=== PATIENT | male | born 1985 | race Hispanic/Latino ===

== ENCOUNTER 2018-01-08 15:58 | Observation (INO) | payer BC ==
[2018-01-08 15:59] VITALS: BMI 25.7
[2018-01-08] MEDS ORDERED: Morphine 4 MG/ML VIAL ONE ×2 (16:10→16:42)
--- NOTE | 2018-01-08 16:36 | RAD ---
Date of service: 01/08/2018 PROCEDURE: Left Ankle Radiographs. HISTORY: Fell playing Rugby; r/o dislocation /or Fx. COMPARISON: None FINDINGS: BONES: There is an oblique fracture traversing the distal fibula with medial and what appears to represent some posterior dislocation of the left tibia with respect to the talus.. There is significant surrounding soft tissue swelling. Note that the possibility of a fracture of the posterior tibia (posterior malleolus) cannot be excluded JOINTS: Disruption of the ankle mortise. SOFT TISSUES: As above. OTHER FINDINGS: None. IMPRESSION: Fracture dislocation left ankle as detailed above with surrounding significant soft tissue swelling..
--- NOTE | 2018-01-08 16:48 | C.PDOC ---
History Of Present Illness 32 year old male presents to ED for evaluation of left ankle. Patient states he was playing rugby when he got stuck under 2 players and their full body weight landed on his ankle. Patient reports the pain was instant and heard three little snaps. Patient also reports throbbing pain with motion and rates it a 5 on the pain scale. Denies fever, chills, chest pain, cough, shortness of breath, nausea, vomiting, numbness, weakness, headache. PMD: Dr. Costa Time Seen by Provider: 01/08/18 16:24 Chief Complaint (Nursing): Lower Extremity Problem/Injury History Per: Patient History/Exam Limitations: no limitations Onset/Duration Of Symptoms: Hrs Current Symptoms Are (Timing): Still Present Past Medical History Reviewed: Historical Data, Nursing Documentation, Vital Signs Vital Signs: Last Vital Signs Temp 98.1 F 01/08/18 16:20 Pulse 50 L 01/08/18 16:20 Resp 18 01/08/18 16:20 BP 145/95 H 01/08/18 16:20 Pulse Ox 100 01/08/18 16:20 Surgical History: No Surg Hx Family History: States: No Known Family Hx - Social History Hx Alcohol Use: No Hx Substance Use: No Review Of Systems Except As Marked, All Systems Reviewed And Found Negative. Constitutional: Negative for: Fever, Chills Cardiovascular: Negative for: Chest Pain Respiratory: Negative for: Cough, Shortness of Breath Gastrointestinal: Negative for: Nausea, Vomiting Musculoskeletal: Positive for: Foot Pain (Left foot), Other (Left ankle ) Neurological: Negative for: Weakness, Numbness, Headache Physical Exam - Physical Exam Appears: Well, Non-toxic, Other (Appears to be in pain.) Skin: Warm, Dry Head: Atraumatic, Normacephalic Eye(s): bilateral: Normal Inspection, PERRL, EOMI Ear(s): Bilateral: Normal Nose: Normal Oral Mucosa: Moist Tongue: Normal Appearing Gingiva: Normal Appearing Throat: Normal Neck: Normal, Supple Chest: Symmetrical, No Deformity Cardiovascular: Rhythm Regular, No Murmur Respiratory: Normal Breath Sounds, No Rales, No Rhonchi, No Wheezing Gastrointestinal/Abdominal: Soft, No Tenderness, No Distention Extremity: Tenderness (Left ankle.), Other (Positive deformity to left ankle, pulses intact, good color to foot. ) Extremity: Left: Other (left ankle deformed and tender; pulses intact) Pulses: Left Dorsalis Pedis: Normal, Right Dorsalis Pedis: Normal Neurological/Psych: Oriented x3, Normal Speech, Normal Sensation ED Course And Treatment - Laboratory Results Result Diagrams: 01/08/18 16:57 01/08/18 16:57 O2 Sat by Pulse Oximetry: 100 (RA) Pulse Ox Interpretation: Normal - Other Rad X-ray left ankle X-Ray: Interpreted by Me, Viewed By Me Interpretation: FINDINGS: BONES: There is an oblique fracture traversing the distal fibula with medial and what appears to represent some posterior dislocation of the left tibia with respect to the talus.. There is significant surrounding soft tissue swelling. Note that the possibility of a fracture of th e posterior tibia (posterior malleolus) cannot be excluded. JOINTS: Disruption of the ankle mortise. SOFT TISSUES: As above. OTHER FINDINGS: None. IMPRESSION: Fracture dislocation left ankle as detailed above with surrounding significant soft tissue swelling.. Medical Decision Making Medical Decision Making: Initial Impression: Likely ankle dislocation +/- fracture Initial Plan: * Pain medication * X-rays * Call podiatry Progress note: 4:46 PM - Podiatry enroute to ED. Will need reduction and likely surgery. Procedure note: 6:05 PM - Procedural sedation occurred with fentanyl + versed with no complications--tolerated procedure well. Podiatry reduced ankle during procedural sedation; bones in good alignment. Pt to go to OR in about 30 minutes. Disposition Counseled Patient/Family Regarding: Studies Performed, Diagnosis - Disposition Disposition: HOSPITALIZED Disposition Time: 17:16 Condition: FAIR - POA Present On Arrival: Falls Or Trauma - Clinical Impression Clinical Impression: Ankle fracture, left, Dislocation of ankle, left, closed - Scribe Statement The provider has reviewed the documentation as recorded by the Ciro Riggs Provider Attestation: All medical record entries made by the Cruzibted were at my direction and personally dictated by me. I have reviewed the chart and agree that the record accurately reflects my personal performance of the history, physical exam, medical decision making, and the department course for this patient. I have also personally directed, reviewed, and agree with the discharge instructions and disposition. Decision To Admit - Pt Status Changed To: Hospital Disposition Of: Observation - . Bed Request Type: Regular Admitting Physician: America Shrestha Patient Diagnosis: Ankle fracture, left, Dislocation of ankle, left, closed Proc Sedation PRE-PROCEDURE - Pre-Anesthesia Chief Complaint: Lower Extremity Problem/Injury Past Medical History: Medications Reviewed, Allergies Reviewed, Record Review Previous Surgies: Reviewed Family History/Social History: Reviewed - Physical Exam/Review of Systems Vital Signs Reviewed: Yes Vital Signs and Pre-Procedure Checklist: T 98.8, P 54, 16, BP 145/95 Cardiovascular: Regular Rate and Rhythm. denies: Murmurs Respiratory/Chest: Clear to Auscultation. denies: Respiratory Distress, Accessory Muscle Use Neurological: GCS=15 Abdomen: denies: Tenderness Mental Status: Alert and Oriented X 3 Other pertinent exam: Pulses intact to left foot - Pre-Procedure Airway Assessment History of difficult intubation or surgical airway (i.e trach):: No Inability to extend neck:: No Mouth opening less than two finger breadth:: No Diagnosis of sleep apnea:: No Less than three finger breadth to hyoid bone:: No ASA Criteria: 1 - Healthy, normal. 2 - Mild systemic disease (No functional limitations, mildline obesity, DM withot complications, Hypertention). 3 - Severe systemic disease (Some functional limitation, stable angina, morbid obesity, controlled COPD/Asthma/CHF). 4 - Sever systemic disease constant threat to life (Unstable angina, active symptoms of COPD/Asthma, CHF/Hypertension. 5 - Moribund ASA Clarification: ASA I Mallampati (airway): Class I Proc Sedation INTRA-PROCEDURE - Medications Medications Given: Cefazolin Sodium / Sodium (Chloride) 50 mls @ 100 mls/hr IVPB Q8H NICHOLAS; Protocol Discontinued Medications Fentanyl (Fentanyl) 50 mcg IV STAT STA Stop: 01/08/18 17:02 Fentanyl (Fentanyl) 50 mcg IV STAT STA Stop: 01/08/18 17:39 Fentanyl (Fentanyl) 50 mcg IV STAT STA Stop: 01/08/18 17:46 Sodium Chloride (Sodium Chloride 0.9%) 500 mls @ 0 mls/hr IV .Q0M ONE Stop: 01/08/18 17:39 Lidocaine HCl (Lidocaine 2% 20ml Vial) 20 ml INFIL ONCE ONE Stop: 01/08/18 17:08 Midazolam HCl (Versed Inj) 2 mg IV STAT STA Stop: 01/08/18 17:02 Midazolam HCl (Versed Inj) 2 mg IV STAT STA Stop: 01/08/18 17:36 Morphine Sulfate (Morphine) 6 mg IVP STAT STA Stop: 01/08/18 16:11 Last Admin: 01/08/18 16:10 Dose: 6 mg MAR Pain Assessment Document 01/08/18 16:10 EC (Rec: 01/08/18 16:18 EC [id number]) Pain Reassessment Is this a pain reassessment? No Sleep Is patient sleeping during reassessment? No Presence of Pain Presence of Pain No Pain Scale Used Protocol: [facility] Pain Scale Used Numeric Location Left, Right or Bilateral Left Pain Location Body Site Ankle Description Description Constant Intensity of Pain at present 10 Acceptable Level of Pain 4 Pain Behavior Withdrawal from Touch Facial Grimacing IVP Administration Document 01/08/18 16:10 EC (Rec: 01/08/18 16:18 EC [id number]) Charges for Administration # of IVP Administrations 1 Morphine Sulfate (Morphine) 8 mg IVP STAT STA Stop: 01/08/18 16:34 Last Admin: 01/08/18 16:40 Dose: 8 mg MAR Pain Assessment Document 01/08/18 16:40 KXF (Rec: 01/08/18 16:56 [id number]) Pain Reassessment Is this a pain reassessment? Yes Sleep Is patient sleeping during reassessment? No Presence of Pain Presence of Pain Yes Pain Scale Used Protocol: [facility] Pain Scale Used Numeric Location Left, Right or Bilateral Left Pain Location Body Site Ankle Description Description Constant Pain Behavior Facial Grimacing IVP Administration Document 01/08/18 16:40 KXF (Rec: 01/08/18 16:56 [id number]) Charges for Administration # of IVP Administrations 1 Vital Signs: P 71, PO 96%, Resp Rate 11, BP 124/78 Proc Sedation POST-PROCEDURE - REACT Score REACT Score: 9 - Post Procedure Physician Note Post Procedure Note: Tolerated procedure well. Bones are in good alignment. - Discharge Checklist Written MD order for Discharge: No Vital signs assessed and are consistent with pre-procedure reading: Yes Voided (if applicable): No Minimal nausea, vomiting, and dizziness: Yes Ambulates to pre-procedural level: No Alert and oriented to pre-procedural level: Yes Responsible adult escort present: Yes DISCHARGE INSTRUCTIONS GIVEN:: N/A
[2018-01-08] MEDS ORDERED: Midazolam 2 MG/2 ML VIAL IV STA ×2 (17:01→17:35)
[2018-01-08] MEDS ORDERED: Naloxone 0.4 mg/ml Inj (Adult) ONE (17:02)
[2018-01-08] MEDS ORDERED: Midazolam 2 MG/2 ML VIAL ONE ×2 (17:02→19:36)
[2018-01-08] MEDS ORDERED: Lidocaine 1% Inj (20ml) INFIL ONE (17:05)
[2018-01-08 17:10] LABS: INR 1.2
[2018-01-08] MEDS ORDERED: Lidocaine 2% MPF (5 ml) Inj ONE ×2 (17:12→17:25)
[2018-01-08 17:13] LABS: BASO % 0.4 % (0.0-2.0); EOS % 0.3 % (0.0-4.0); HEMOGLOBIN 14.1 g/dL (12.0-18.0); LYMPH # 1.1 K/uL (1.0-4.3); LYMPH % 8.9 % (20.0-40.0); MEAN CELL VOLUME 78.7 fL (80.0-94.0); MEAN CORPUSCULAR HEMOGLOBIN 26.4 pg (27.0-31.0); MEAN CORPUSCULAR HGB CONC 33.5 g/dL (33.0-37.0); MEAN PLATELET VOLUME 8.2 fL (7.2-11.7); MONO # 0.5 K/uL (0.0-0.8); MONO % 4.3 % (0.0-10.0); NEUT # 10.5 K/uL (1.8-7.0); NEUT % 86.1 % (50.0-75.0); NRBC % 0.1 % (0.0-2.0); PLATELET COUNT 251 K/uL (130-400); RBC 5.35 Mil/uL (4.40-5.90); RED CELL DISTRIBUTION WIDTH 13.2 % (11.5-14.5); WHITE BLOOD COUNT 12.2 K/uL (4.8-10.8)
[2018-01-08 17:14] LABS: ALB/GLOB RATIO 1.6 (1.0-2.1); ALBUMIN 4.7 g/dL (3.5-5.0); ALT/SGPT 40 U/L (21-72); AST/SGOT 43 U/L (17-59); BLOOD UREA NITROGEN 15 mg/dL (9-20); CALCIUM 9.7 mg/dl (8.6-10.4); GFR NON-AFRICAN AMERICAN > 60
[2018-01-08] MEDS ORDERED: Sodium Chloride 0.9% 500 ML IV ONE (17:38)
[2018-01-08 17:49] LABS: BANDS 2 % (0-2); LYMPHOCYTE 12 % (20-40); MONOCYTE 2 % (0-10); NEUTROPHIL 84 % (50-75); PLATELET ESTIMATE NORMAL (NORMAL); TOTAL CELLS COUNTED 100
[2018-01-08 17:50] LABS: ANISOCYTOSIS SLIGHT; HYPOCHROMIC SLIGHT; LARGE PLATELETS PRESENT; OVALOCYTES SLIGHT; POIKILOCYTOSIS SLIGHT
[2018-01-08] MEDS ORDERED: Sodium Chloride 0.9% 1,000 ML IV SCH ×2 (18:00→18:55)
--- NOTE | 2018-01-08 18:05 | CP.PCM.CON ---
History of Present Illness - History of Present Illness History of Present Illness: 32 yo male with no significant pmhx seen and evaluated in the ED for left ankle fracture and dislocation. Patient is AAOx3 and NAD. States that he was playing rugby and got his foot caught on the turf and felt his ankle break. States that he has not ambulated on the ankle since the incident which was a few hours ago. States that he has not eaten since 10:30AM. States that he was in severe pain but has since been given pain medication which has helped. Denies N/V/F/C/CP/SOB and has no other pedal complaints at this time. PMHx Denies PSHx Denies All NKDA Past Patient History - Infectious Disease Hx of Infectious Diseases: None - Past Social History Smoking Status: Never Smoked - PSYCHIATRIC Hx Substance Use: No - SURGICAL HISTORY Hx Surgeries: No - ANESTHESIA Hx Anesthesia: No Meds Allergies/Adverse Reactions: Allergies Allergy/AdvReac Type Severity Reaction Status Date / Time No Known Allergies Allergy Verified 01/08/18 16:22 - Medications Medications: Current Medications Cefazolin Sodium (Ancef) 1 gm in 50 mls @ 100 mls/hr IVPB Q8H NICHOLAS; Protocol Sodium Chloride (Sodium Chloride 0.9%) 1,000 mls @ 100 mls/hr IV .Q10H NICHOLAS Ketorolac Tromethamine (Toradol) 15 mg IVP Q6 PRN PRN Reason: Pain, moderate (4-7) Pantoprazole Sodium (Protonix Inj) 40 mg IVP DAILY NICHOLAS Physical Exam - Constitutional Appears: Well, Non-toxic, No Acute Distress - Head Exam Head Exam: ATRAUMATIC, NORMOCEPHALIC - Extremities Exam Additional comments: Vasc: DP and PT palpable 2/4 b/l; cap refill <3 seconds to all digits; temp gradient warm to warm on the left from proximal to distal, wnl to right; mild edema present at the left ankle M>L Derm: Left focused - no open lesions present, no streaking or cellulitis present, no clinical signs of infection; ecchymosis present on the medial aspect of hte ankle with skin tenting present due to medial displacement of the ankle; mild erythema present at the medial ankle as well Ortho: closed reduction performed - ankle reduced into proper alignment, cast applied to left lower extremity Neuro: gross and protective sensation intact b/l - Neurological Exam Neurological exam: Alert, Oriented x3 - Psychiatric Exam Psychiatric exam: Normal Affect, Normal Mood Results - Vital Signs Recent Vital Signs: Last Vital Signs Temp 98.6 F 01/08/18 17:31 Pulse 74 01/08/18 17:40 Resp 16 01/08/18 17:40 BP 132/79 01/08/18 17:40 Pulse Ox 100 01/08/18 18:01 - Labs Result Diagrams: 01/08/18 16:57 01/08/18 16:57 Labs: Laboratory Results - last 24 hr 01/08/18 01/08/18 01/08/18 16:57 16:57 16:57 WBC 12.2 H RBC 5.35 Hgb 14.1 Hct 42.1 MCV 78.7 L MCH 26.4 L MCHC 33.5 RDW 13.2 Plt Count 251 MPV 8.2 Neut % (Auto) 86.1 H Lymph % (Auto) 8.9 L Hood % (Auto) 4.3 Eos % (Auto) 0.3 Baso % (Auto) 0.4 Neut # (Auto) 10.5 H Lymph # (Auto) 1.1 Hood # (Auto) 0.5 Eos # (Auto) 0.0 Baso # (Auto) 0.0 Neutrophils % (Manual) 84 H Band Neutrophils % 2 Lymphocytes % (Manual) 12 L Monocytes % (Manual) 2 Platelet Estimate Normal Large Platelets Present Hypochromasia (manual) Slight Poikilocytosis (manual Slight Anisocytosis (manual) Slight Ovalocytes Slight PT 13.0 H INR 1.2 Sodium 141 Potassium 4.3 Chloride 102 Carbon Dioxide 27 Anion Gap 16 BUN 15 Creatinine 1.1 Est GFR ( Amer) > 60 Est GFR (Non-Af Amer) > 60 Random Glucose 104 Calcium 9.7 Total Bilirubin 1.1 AST 43 ALT 40 Alkaline Phosphatase 110 Total Protein 7.6 Albumin 4.7 Globulin 2.9 Albumin/Globulin Ratio 1.6 Assessment & Plan - Assessment and Plan (Free Text) Assessment: 32 yo male with no significant pmhx seen and evaluated in the ED for left ankle fracture and dislocation Plan: Patient seen and evaluated with Dr. Lai Charts and labs reviewed - mild elevated WBC normal with trauma; afebrile X-rays taken and reviewed - left distal fibular fracture with syndesmotic ruptu re, medial dislocation of ankle on rearfoot Consent signed for closed reduction of ankle in ED - risks and benefits explained, patient signed consent Closed reduction performed with injection of 20cc of 2% lidocaine plain; post reduction films taken, adequate reduction achieved Cast applied to left lower extremity Patient will be taken for ORIF of left ankle tonight - OR, ED, podiatry aware - consent for surgery, patient signed Ancef 1g ordered for periop prophylaxis, PT eval ordered, consult appreciated Patient will stay overnight for observation, podiatry will follow when patient on floor Thank you for the consult - Date & Time Date: 01/08/18 Time: 18:16
[2018-01-08] MEDS ORDERED: ceFAZolin 1 gm in NS 1 GM/100 ML BAG IVPB ONE (18:14)
--- NOTE | 2018-01-08 18:52 | CP.PCM.HP ---
History of Present Illness - History of Present Illness History of Present Illness: Medicine History and Physical for Hospitalist Service 32M with no remarkable PMhx presents to ED s/p trauma to L ankle while playing rugby 3 hrs prior. Pt states that he was playing rugby at [employer] on a turf field when he slid down to make a play, and 2 players fell on him, causing him to land on his L ankle the wrong way, felt pop and pain as a result. Denies hx of trauma/fractures to same area. Pts at bedside reports hx dislocating L middle finger 3 weeks ago, which pt was able to reduce on own without concerns. Denies headache, dizziness, trauma to head/LOC, chest pain, sob, n/v/d/c, abd pain, urinary complaints, or other symptoms. PMHx: denies PSurghx: denies Allergies: NKDA Home meds: none Fam Hx: denies Soc Hx: denies smoking, EtOH, or illicit drug use PMD: none Present on Admission - Present on Admission Any Indicators Present on Admission: No Past Patient History - Infectious Disease Hx of Infectious Diseases: None - Past Social History Smoking Status: Never Smoked - PSYCHIATRIC Hx Substance Use: No - SURGICAL HISTORY Hx Surgeries: No - ANESTHESIA Hx Anesthesia: No Meds Allergies/Adverse Reactions: Allergies Allergy/AdvReac Type Severity Reaction Status Date / Time No Known Allergies Allergy Verified 01/08/18 16:22 Physical Exam - Constitutional Appears: Non-toxic, In Acute Distress - Head Exam Head Exam: ATRAUMATIC, NORMOCEPHALIC - Eye Exam Eye Exam: EOMI, Normal appearance, PERRL - ENT Exam ENT Exam: Mucous Membranes Moist - Respiratory Exam Respiratory Exam: Clear to Auscultation Bilateral, NORMAL BREATHING PATTERN. absent: Rales, Rhonchi, Wheezes - Cardiovascular Exam Cardiovascular Exam: REGULAR RHYTHM, +S1, +S2. absent: Gallop, Rubs, Systolic Murmur - GI/Abdominal Exam GI & Abdominal Exam: Normal Bowel Sounds, Soft. absent: Distended, Firm, Guarding, Organomegaly, Rebound, Rigid, Tenderness - Extremities Exam Extremities exam: Positive for: joint swelling, tenderness, pedal pulses present Additional comments: Unable to assess L ankle 2/2 pain due to fracture, pt unable to move L leg on exam without inducing pain - Neurological Exam Neurological exam: Alert, CN II-XII Intact, Oriented x3, Reflexes Normal - Psychiatric Exam Psychiatric exam: Normal Affect, Normal Mood - Skin Skin Exam: Dry, Intact, Normal Color, Warm Results - Vital Signs Recent Vital Signs: Last Vital Signs Temp 98.6 F 01/08/18 17:31 Pulse 76 01/08/18 18:18 Resp 15 01/08/18 18:18 BP 123/69 01/08/18 18:18 Pulse Ox 100 01/08/18 18:21 - Labs Result Diagrams: 01/08/18 16:57 01/08/18 16:57 Labs: Laboratory Results - last 24 hr 01/08/18 01/08/18 01/08/18 16:57 16:57 16:57 WBC 12.2 H RBC 5.35 Hgb 14.1 Hct 42.1 MCV 78.7 L MCH 26.4 L MCHC 33.5 RDW 13.2 Plt Count 251 MPV 8.2 Neut % (Auto) 86.1 H Lymph % (Auto) 8.9 L [place] % (Auto) 4.3 Eos % (Auto) 0.3 Baso % (Auto) 0.4 Neut # (Auto) 10.5 H Lymph # (Auto) 1.1 [place] # (Auto) 0.5 Eos # (Auto) 0.0 Baso # (Auto) 0.0 Neutrophils % (Manual) 84 H Band Neutrophils % 2 Lymphocytes % (Manual) 12 L Monocytes % (Manual) 2 Platelet Estimate Normal Large Platelets Present Hypochromasia (manual) Slight Poikilocytosis (manual Slight Anisocytosis (manual) Slight Ovalocytes Slight PT 13.0 H INR 1.2 Sodium 141 Potassium 4.3 Chloride 102 Carbon Dioxide 27 Anion Gap 16 BUN 15 Creatinine 1.1 Est GFR ( Amer) > 60 Est GFR (Non-Af Amer) > 60 Random Glucose 104 Calcium 9.7 Total Bilirubin 1.1 AST 43 ALT 40 Alkaline Phosphatase 110 Total Protein 7.6 Albumin 4.7 Globulin 2.9 Albumin/Globulin Ratio 1.6 Blood Type Antibody Screen 01/08/18 17:12 WBC RBC Hgb Hct MCV MCH MCHC RDW Plt Count MPV Neut % (Auto) Lymph % (Auto) [place] % (Auto) Eos % (Auto) Baso % (Auto) Neut # (Auto) Lymph # (Auto) [place] # (Auto) Eos # (Auto) Baso # (Auto) Neutrophils % (Manual) Band Neutrophils % Lymphocytes % (Manual) Monocytes % (Manual) Platelet Estimate Large Platelets Hypochromasia (manual) Poikilocytosis (manual Anisocytosis (manual) Ovalocytes PT INR Sodium Potassium Chloride Carbon Dioxide Anion Gap BUN Creatinine Est GFR ( Amer) Est GFR (Non-Af Amer) Random Glucose Calcium Total Bilirubin AST ALT Alkaline Phosphatase Total Protein Albumin Globulin Albumin/Globulin Ratio Blood Type O POSITIVE Antibody Screen Negative Assessment & Plan - Assessment and Plan (Free Text) Assessment: 32M with no remarkable PMhx presents to ED s/p trauma to L ankle while playing rugby 3 hrs prior. Found to have L ankle fracture and dislocation. Pt to go to OR tonight for ORIF with Dr. Lai. Plan: L ankle and fibular fx fracture Mild leukocytosis on admission labs, likely 2/2 to trauma, pt afebrile XR L ankle and tib/fibula performed L distal fibular fx with syndesmotic rupture, medial dislocation of ankle on rear forefoot S/p closed reduction performed in ED with lidocaine injection, post reduction films demonstrates adequate reduction Plan for ORIF of L ankle tonight with Dr. Lai (Podiatry consulted) Ancef 1 g ordered for sriram-op ppx PT eval ordered, f/u recs Toradol 15 mg IVP q 6h prn DVT ppx: SCDs GI ppx: Protonix daily Dispo: D/c planning after procedure pending podiatry clearance after pt has procedure; will f/u am post-op labs tomorrow Pt seen, examined with, and plan discussed with Dr. Shrestha, attending. Ousmane Estrada DO PGY-1, Publishing Agent pager #[phone]
[2018-01-08] MEDS: ceFAZolin 1 gm FROZEN Premix 1 GM/50 ML ML IVPB SCH (19:28)
[2018-01-08] MEDS ORDERED: Propofol 10 mg/ml Inj (20 ML) ONE (19:36)
[2018-01-08] MEDS ORDERED: LIDOCAINE 2% PF (2ML) ONE (20:04)
[2018-01-08] MEDS ORDERED: ceFAZolin IV 1 gm in Dextrose 2 GM/100 ML BAG IVPB ONE (20:06)
[2018-01-08] MEDS: Lidocaine 2% Inj (20ml) INFIL ONE ×2 (20:15→20:30)
[2018-01-08] MEDS: Bupivacaine 0.25% 20 ML INJ IJ ONE ×3 (20:15→22:09)
[2018-01-08] MEDS ORDERED: Lidocaine Hydrochloride 5 ML INJ ONE (21:49)
[2018-01-08] MEDS ORDERED: Bupivacaine 0.25% 20 ML INJ IJ ONE (21:54)
[2018-01-08] MEDS ORDERED: HYDROmorphone 1 mg/ml ISec IVP PRN (22:15)
[2018-01-08] MEDS ORDERED: Oxycodone/Acetaminophen 5/325 mg Tab PO PRN ×2 (22:15)
[2018-01-08] MEDS ORDERED: HYDROmorphone 0.5 mg/0.5 ml ISec IVP PRN (22:17)
--- NOTE | 2018-01-08 22:24 | PCM.SURG1 ---
Surgeon's Initial Post Op Note - Surgeon's Notes Surgeon: Dr. Lai DPM Acid Condenser: Dr. Serrano PGY3, Dr. Royal PGY3, Dr. Melissa PGY1 Type of Anesthesia: General LMA, Local Anesthesia Administered By: Justo Pre-Operative Diagnosis: Left fibular fracture and disruption of syndesmosis Operative Findings: see dictation Post-Operative Diagnosis: same Operation Performed: Left ankle ORIF with tightrope Specimen/Specimens Removed: none Estimated Blood Loss: EBL {In ML}: 30 Blood Products Given: N/A Drains Used: No Drains Post-Op Condition: Good Date of Surgery/Procedure: 01/08/18 Time of Surgery/Procedure: 22:23
[2018-01-09 00:34] VITALS: RESP 20
[2018-01-09] MEDS ORDERED: ceFAZolin 1 gm FROZEN Premix 1 GM/50 ML ML IVPB ONE ×2 (04:00→08:00)
[2018-01-09 04:16] VITALS: O2SAT 98
[2018-01-09 09:17] LABS: BASO % 0.3 % (0.0-2.0); EOS # 0.1 K/uL (0.0-0.7); EOS % 0.9 % (0.0-4.0); HEMOGLOBIN 12.5 g/dL (12.0-18.0); LYMPH # 1.9 K/uL (1.0-4.3); LYMPH % 25.9 % (20.0-40.0); MEAN CELL VOLUME 79.1 fL (80.0-94.0); MEAN CORPUSCULAR HGB CONC 34.1 g/dL (33.0-37.0); MEAN PLATELET VOLUME 8.5 fL (7.2-11.7); MONO # 0.5 K/uL (0.0-0.8); MONO % 6.8 % (0.0-10.0); NEUT # 4.8 K/uL (1.8-7.0); NEUT % 66.1 % (50.0-75.0); RBC 4.65 Mil/uL (4.40-5.90); RED CELL DISTRIBUTION WIDTH 13.6 % (11.5-14.5); WHITE BLOOD COUNT 7.3 K/uL (4.8-10.8)
[2018-01-09 09:35] LABS: ALB/GLOB RATIO 1.5 (1.0-2.1); ALBUMIN 3.7 g/dL (3.5-5.0); ALT/SGPT 28 U/L (21-72); AST/SGOT 29 U/L (17-59); BLOOD UREA NITROGEN 12 mg/dL (9-20); CALCIUM 8.9 mg/dl (8.6-10.4); GFR NON-AFRICAN AMERICAN > 60
[2018-01-09] MEDS: ceFAZolin 1 gm FROZEN Premix 1 GM/50 ML ML IVPB SCH (09:52)
[2018-01-09] MEDS ORDERED: oxyCODONE 5 mg Immediate Release Tab PO ONE (10:26)
--- NOTE | 2018-01-09 12:15 | RAD ---
Date of service: 01/08/2018 PROCEDURE: Intraoperative Fluoroscopy. HISTORY: LEFT ANKLE FX FINDINGS: Fluoroscopic assistance was provided for open reduction internal fixation. Please refer to the operative report from [facility]. Total fluoroscopic time (continuous mode) utilized during the procedure 102.1 (seconds). Total exam DLP: 3.44 (mGy).
--- NOTE | 2018-01-09 12:26 | RAD ---
Date of service: 01/08/2018 PROCEDURE: Left Ankle Radiographs. HISTORY: Portable Post Reduction Ankle Xrays COMPARISON: Correlation made with prior ankle radiographs 01/08/2018 at 16: 13 hr FINDINGS: BONES: Comminuted fracture of the distal fibula with the suspected fracture the posterior malleolus. Soft tissue swelling. JOINTS: Apparent closed reduction previously noted dislocated tibia with respect to the talus. Note the possibility of a fracture of the talus cannot be excluded. Tele SOFT TISSUES: Surrounding soft tissue swelling. OTHER FINDINGS: None. IMPRESSION: Comminuted fracture distal fibula with suspected fracture posterior malleolus. Note that the possibility of a fracture of the distal talus not excluded. Apparent closed reduction previously noted dislocated tibia with respect to the talus.
--- NOTE | 2018-01-09 12:38 | CP.PCM.PN ---
Subjective - Date & Time of Evaluation Date of Evaluation: 01/09/18 Time of Evaluation: 12:25 - Subjective Subjective: Podiatry progress note for Dr. Lai, 32 yo male s/p 1 day left ankle ORIF seen at bedside restin comfortably alongside his . Patient is in NAD and AAOx3. Patient admits to pain being controlled with the pain medication. Patient states he has an appetite and is able to eat. Admits to elevating left lower extremity. Patient states he would like to go home today if possible. Denies calf pain/f/n/v/sob/decreased appetite. Objective - Vital Signs/Intake and Output Vital Signs (last 24 hours): Temp Pulse Resp BP Pulse Ox 98.0 F 61 20 103/61 98 01/09/18 07:00 01/09/18 07:00 01/09/18 07:00 01/09/18 07:00 01/09/18 11:05 Intake and Output: 01/09/18 01/09/18 06:59 18:59 Intake Total 1120 Output Total 700 Balance 420 - Medications Medications: Current Medications Acetaminophen (Tylenol 325mg Tab) 650 mg PO Q6 PRN PRN Reason: Pain, Mild (1-3) Hydromorphone HCl (Dilaudid) 1 mg IVP Q4H PRN PRN Reason: Pain, severe (8-10) Influenza Virus Vaccine (Fluzone Quad [id number]) 60 mcg IM .ONCE ONE Stop: 01/11/18 14:01 Ketorolac Tromethamine (Toradol) 15 mg IVP Q6 PRN PRN Reason: Pain, moderate (4-7) Last Admin: 01/09/18 04:51 Dose: 15 mg Oxycodone/Acetaminophen (Percocet 5/325 Mg Tab) 1 tab PO Q4H PRN PRN Reason: Pain, moderate (4-7) Stop: 01/11/18 22:16 Last Admin: 01/09/18 04:10 Dose: 1 tab Oxycodone/Acetaminophen (Percocet 5/325 Mg Tab) 2 tab PO Q4H PRN PRN Reason: Pain, severe (8-10) Stop: 01/11/18 22:16 Pantoprazole Sodium (Protonix Inj) 40 mg IVP DAILY NICHOLAS - Labs Labs: 01/09/18 09:05 01/09/18 09:24 PT 13.0 SECONDS (9.7-12.2) H 01/08/18 16:57 INR 1.2 01/08/18 16:57 - Constitutional Appears: Well, Non-toxic, No Acute Distress - Head Exam Head Exam: ATRAUMATIC, NORMOCEPHALIC - Extremities Exam Additional comments: Left lower extremity exam: Dressing clean and intact, sanguinous strikethrough noted. Patient able to wiggle his toes, CFT <3 secs x5. - Neurological Exam Neurological Exam: Alert, Awake, Oriented x3 - Psychiatric Exam Psychiatric exam: Normal Affect Assessment and Plan - Assessment and Plan (Free Text) Assessment: 32 yo male with no significant pmhx s/p 1 day left ankle ORIF Plan: Patient seen and evaluated along with the attending, Dr Lai chart, labs and vitals reviewed, afebrile, absent leukocytosis. Dressing with posterior splint kept intact; new PAULINE wrap applied. Patient crutch trained by the physical therapist Patient to d/c with PO pain medication, keflex, and xarelto by the medicine team Patient to follow up with Dr Lai in her [place] office this Wednesday. Patient to keep dressing d/c/i and stay [facility] to [facility] Podiatry will follow the patient while in house. Patient stable for discharge from podiatry point of view.
--- NOTE | 2018-01-09 13:36 | RAD ---
Date of service: 01/08/2018 PROCEDURE: Radiographs of the left tibia and fibula. HISTORY: Left leg trauma COMPARISON: Comparison made with radiographs left ankle earlier same day TECHNIQUE: Frontal and lateral views obtained. FINDINGS: There has been interval placement of a fiberglass cast or splint which reduces fine soft tissue and bone detail. BONES: Status post closed reduction previously noted comminuted fracture distal fibula and dislocation of the distal tibia with respect to the talus. Questionable fracture of the posterior malleolus. Note that the possibility of a fracture of the talus cannot be excluded. Surrounding soft tissue swelling. JOINT SPACES: As above OTHER FINDINGS: None. IMPRESSION: The slightly limited study as described. Status post closed reduction previously noted comminuted fracture distal fibula and dislocation of the distal tibia with respect to the talus. Questionable fracture of the posterior malleolus. Note that the possibility of a fracture of the talus cannot be excluded. Surrounding soft tissue swelling.
--- NOTE | 2018-01-09 13:38 | RAD ---
Date of service: 1 with a done 01/08/2018 PROCEDURE: Left Ankle Radiographs. HISTORY: s/p left ankle ORIF COMPARISON: None FINDINGS: BONES: ORIF previously noted comminuted fractured distal fibula. There has been placement of a sideplate which is attached to the distal fibula by multiple threaded screws. Additionally, there also appears to have been tight rope syndesmotic repair. Surrounding soft tissue swelling. JOINTS: As above SOFT TISSUES: As above OTHER FINDINGS: None. IMPRESSION: ORIF previously noted comminuted fractured distal fibula. There has been placement of a sideplate which is attached to the distal fibula by multiple threaded screws. Additionally, there also appears to have been tight rope syndesmotic repair.
[2018-01-09 15:58] VITALS: BP 118/76; PULSE 59; TEMP 99.2
--- NOTE | 2018-01-09 20:09 | CP.PCM.DIS ---
<Ousmane Estrada - Last Filed: 01/09/18 19:59> Provider - Provider Date of Admission: 01/08/18 17:19 Attending physician: America Shrestha MD Primary care physician: Dr. Lozada Consults: Podiatry - Dr. Lai Time Spent in preparation of Discharge (in minutes): 45 Diagnosis - Discharge Diagnosis (1) Left fibular fracture Status: Acute (2) Ankle fracture, left Status: Acute (3) Dislocation of ankle, left, closed Status: Acute Hospital Course - Lab Results Lab Results: Most Recent Lab Values WBC 7.3 K/uL (4.8-10.8) 01/09/18 09:05 RBC 4.65 Mil/uL (4.40-5.90) 01/09/18 09:05 Hgb 12.5 g/dL (12.0-18.0) 01/09/18 09:05 Hct 36.8 % (35.0-51.0) 01/09/18 09:05 MCV 79.1 fL (80.0-94.0) L 01/09/18 09:05 MCH 27.0 pg (27.0-31.0) 01/09/18 09:05 MCHC 34.1 g/dL (33.0-37.0) 01/09/18 09:05 RDW 13.6 % (11.5-14.5) 01/09/18 09:05 Plt Count 207 K/uL (130-400) 01/09/18 09:05 MPV 8.5 fL (7.2-11.7) 01/09/18 09:05 Neut % (Auto) 66.1 % (50.0-75.0) 01/09/18 09:05 Lymph % (Auto) 25.9 % (20.0-40.0) 01/09/18 09:05 [place] % (Auto) 6.8 % (0.0-10.0) 01/09/18 09:05 Eos % (Auto) 0.9 % (0.0-4.0) 01/09/18 09:05 Baso % (Auto) 0.3 % (0.0-2.0) 01/09/18 09:05 Neut # (Auto) 4.8 K/uL (1.8-7.0) 01/09/18 09:05 Lymph # (Auto) 1.9 K/uL (1.0-4.3) 01/09/18 09:05 [place] # (Auto) 0.5 K/uL (0.0-0.8) 01/09/18 09:05 Eos # (Auto) 0.1 K/uL (0.0-0.7) 01/09/18 09:05 Baso # (Auto) 0.0 K/uL (0.0-0.2) 01/09/18 09:05 Neutrophils % (Manual) 84 % (50-75) H 01/08/18 16:57 Band Neutrophils % 2 % (0-2) 01/08/18 16:57 Lymphocytes % (Manual) 12 % (20-40) L 01/08/18 16:57 Monocytes % (Manual) 2 % (0-10) 01/08/18 16:57 Platelet Estimate Normal (NORMAL) 01/08/18 16:57 Large Platelets Present 01/08/18 16:57 Hypochromasia (manual) Slight 01/08/18 16:57 Poikilocytosis (manual Slight 01/08/18 16:57 Anisocytosis (manual) Slight 01/08/18 16:57 Ovalocytes Slight 01/08/18 16:57 PT 13.0 SECONDS (9.7-12.2) H 01/08/18 16:57 INR 1.2 01/08/18 16:57 Sodium 139 mmol/L (132-148) 01/09/18 09:24 Potassium 3.8 mmol/L (3.6-5.2) 01/09/18 09:24 Chloride 102 mmol/L (98-107) 01/09/18 09:24 Carbon Dioxide 26 mmol/L (22-30) 01/09/18 09:24 Anion Gap 16 (10-20) 01/09/18 09:24 BUN 12 mg/dL (9-20) 01/09/18 09:24 Creatinine 1.1 mg/dL (0.8-1.5) 01/09/18 09:24 Est GFR ( Amer) > 60 01/09/18 09:24 Est GFR (Non-Af Amer) > 60 01/09/18 09:24 Random Glucose 151 mg/dL (75-110) H 01/09/18 09:24 Calcium 8.9 mg/dl (8.6-10.4) 01/09/18 09:24 Total Bilirubin 1.4 mg/dL (0.2-1.3) H 01/09/18 09:24 AST 29 U/L (17-59) 01/09/18 09:24 ALT 28 U/L (21-72) 01/09/18 09:24 Alkaline Phosphatase 86 U/L (38-126) 01/09/18 09:24 Total Protein 6.3 g/dL (6.3-8.3) 01/09/18 09:24 Albumin 3.7 g/dL (3.5-5.0) 01/09/18 09:24 Globulin 2.5 gm/dL (2.2-3.9) 01/09/18 09:24 Albumin/Globulin Ratio 1.5 (1.0-2.1) 01/09/18 09:24 Blood Type O POSITIVE 01/08/18 17:12 Antibody Screen Negative 01/08/18 17:12 - Hospital Course Hospital Course: Medicine Discharge Summary for Hospitalist Service Ousmane Estrada DO 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 Pt stated that he was playing rugby at [facility] on a turf field when he slid down to make a play, and 2 players fell on him, causing him to land on his L ankle the wrong way, felt pop and pain as a result. Denied hx of trauma/fractures to same area. Pts at bedside reported hx dislocating L middle finger 3 weeks ago, which pt was able to reduce on own without concerns. Denied headache, dizziness, trauma to head/LOC, chest pain, sob, n/v/d/c, abd pain, urinary complaints, or other symptoms. Pt was found to have L ankle fracture and dislocation on imaging, and was admitted for ORIF to be performed in the OR with Dr. Lai (Podiatry) Pt had mild leukocytosis on admission labs likely secondary to trauma, pt was afebrile. XR of L ankle and L tibia/fibula were performed and demonstrated L distal fibular fx with syndesmotic rupture, and medial dislocation of ankle on rear forefoot. Pt had L ankle reduced at bedside in the ED under sedation which pt tolerated well, post-reduction films demonstrated adequate reduction. Pt was given Ancef prior to and during admission for antibiotic prophylaxis. Physical therapy evaluated patient and gave pt crutches to ambulate for discharge from hospital. Pt tolerated ORIF procedure on 01/08/[address] Lai, pain was well controlled post-op. Follow-up labs in am were within normal limits. Pt was placed in L leg cast by podiatry. Pt was given scripts for Keflex 500 mg qid to complete for total 5 days, Xarelto 10 mg daily for [address] Lai, and Oxycodone 15 mg IR for total of 5 day for pain control. Pt was instructed to follow with Dr. Lai in office for appt on 01/12/18, and to follow with Dr. Lozada (PCP) within 1 week of discharge from hospital. All questions and concerns were addressed with patient and he is understanding of follow-up. Discharge Exam - Head Exam Head Exam: ATRAUMATIC, NORMOCEPHALIC - Eye Exam Eye Exam: EOMI, Normal appearance, PERRL - ENT Exam ENT Exam: Mucous Membranes Moist - Respiratory Exam Respiratory Exam: Clear to PA & Lateral, NORMAL BREATHING PATTERN, UNREMARKABLE. absent: Rales, Rhonchi, Wheezes - Cardiovascular Exam Cardiovascular Exam: REGULAR RHYTHM, +S1, +S2. absent: Gallop, Rubs, Systolic Murmur - GI/Abdominal Exam GI & Abdominal Exam: Normal Bowel Sounds, Soft, Unremarkable. absent: Distended, Firm, Guarding, Rebound, Rigid - Extremities Exam Extremities exam: normal capillary refill, pedal pulses present Additional comments: Cast applied to L leg, c/d/i - Neurological Exam Neurological exam: Alert, CN II-XII Intact, Oriented x3 - Psychiatric Exam Psychiatric exam: Normal Affect, Normal Mood - Skin Skin Exam: Dry, Intact, Normal Color, Warm Discharge Plan - Discharge Medications Prescriptions: Cephalexin [Keflex] 500 mg PO QID #20 capsule RX: oxyCODONE [oxyCODONE Immediate Release Tab] 15 mg PO Q4H PRN #30 tab PRN Reason: Pain, Severe (8-10) Rivaroxaban [Xarelto] 10 mg PO DAILY #30 tab - Follow Up Plan Condition: FAIR Disposition: HOME/ ROUTINE Instructions: Ankle Fracture, Rivaroxaban, Open Reduction and Internal Fixation Surgery, How to Use Crutches, Ankle Fracture (DC), Cephalexin, Oxycodone, Open Reduction and Internal Fixation Surgery (DC), Going Up and Down Curbs or Stairs With a Walker or Crutches Additional Instructions: Patient medically stable for discharge to home. Please follow up with Dr. Lai (Podiatry) for appointment in office on Wednesday. Please follow up with Dr. Lozada (Primary Care Provider) within 1 week of discharge. Please take antibiotic, blood thinner, and pain medication as prescribed. Please keep left leg elevated at home to help reduce swelling and promote healing. Can shower at home, but please keep area of cast dry and intact. Cast to remain on for at least next 4 weeks as per Podiatry. Should symptoms recur or worsen, please call your primary care physician or report to your nearest emergency department. Referrals: Mukul Lozada MD [Staff Provider] - Tracey Lai DPM [Staff Provider] - <America Shrestha - Last Filed: 01/11/18 16:01> Provider - Provider Date of Admission: 01/08/18 17:19 Attending physician: America Shrestha MD Hospital Course - Lab Results Lab Results: Most Recent Lab Values WBC 7.3 K/uL (4.8-10.8) 01/09/18 09:05 RBC 4.65 Mil/uL (4.40-5.90) 01/09/18 09:05 Hgb 12.5 g/dL (12.0-18.0) 01/09/18 09:05 Hct 36.8 % (35.0-51.0) 01/09/18 09:05 MCV 79.1 fL (80.0-94.0) L 01/09/18 09:05 MCH 27.0 pg (27.0-31.0) 01/09/18 09:05 MCHC 34.1 g/dL (33.0-37.0) 01/09/18 09:05 RDW 13.6 % (11.5-14.5) 01/09/18 09:05 Plt Count 207 K/uL (130-400) 01/09/18 09:05 MPV 8.5 fL (7.2-11.7) 01/09/18 09:05 Neut % (Auto) 66.1 % (50.0-75.0) 01/09/18 09:05 Lymph % (Auto) 25.9 % (20.0-40.0) 01/09/18 09:05 [place] % (Auto) 6.8 % (0.0-10.0) 01/09/18 09:05 Eos % (Auto) 0.9 % (0.0-4.0) 01/09/18 09:05 Baso % (Auto) 0.3 % (0.0-2.0) 01/09/18 09:05 Neut # (Auto) 4.8 K/uL (1.8-7.0) 01/09/18 09:05 Lymph # (Auto) 1.9 K/uL (1.0-4.3) 01/09/18 09:05 [place] # (Auto) 0.5 K/uL (0.0-0.8) 01/09/18 09:05 Eos # (Auto) 0.1 K/uL (0.0-0.7) 01/09/18 09:05 Baso # (Auto) 0.0 K/uL (0.0-0.2) 01/09/18 09:05 Neutrophils % (Manual) 84 % (50-75) H 01/08/18 16:57 Band Neutrophils % 2 % (0-2) 01/08/18 16:57 Lymphocytes % (Manual) 12 % (20-40) L 01/08/18 16:57 Monocytes % (Manual) 2 % (0-10) 01/08/18 16:57 Platelet Estimate Normal (NORMAL) 01/08/18 16:57 Large Platelets Present 01/08/18 16:57 Hypochromasia (manual) Slight 01/08/18 16:57 Poikilocytosis (manual Slight 01/08/18 16:57 Anisocytosis (manual) Slight 01/08/18 16:57 Ovalocytes Slight 01/08/18 16:57 PT 13.0 SECONDS (9.7-12.2) H 01/08/18 16:57 INR 1.2 01/08/18 16:57 Sodium 139 mmol/L (132-148) 01/09/18 09:24 Potassium 3.8 mmol/L (3.6-5.2) 01/09/18 09:24 Chloride 102 mmol/L (98-107) 01/09/18 09:24 Carbon Dioxide 26 mmol/L (22-30) 01/09/18 09:24 Anion Gap 16 (10-20) 01/09/18 09:24 BUN 12 mg/dL (9-20) 01/09/18 09:24 Creatinine 1.1 mg/dL (0.8-1.5) 01/09/18 09:24 Est GFR ( Amer) > 60 01/09/18 09:24 Est GFR (Non-Af Amer) > 60 01/09/18 09:24 Random Glucose 151 mg/dL (75-110) H 01/09/18 09:24 Calcium 8.9 mg/dl (8.6-10.4) 01/09/18 09:24 Total Bilirubin 1.4 mg/dL (0.2-1.3) H 01/09/18 09:24 AST 29 U/L (17-59) 01/09/18 09:24 ALT 28 U/L (21-72) 01/09/18 09:24 Alkaline Phosphatase 86 U/L (38-126) 01/09/18 09:24 Total Protein 6.3 g/dL (6.3-8.3) 01/09/18 09:24 Albumin 3.7 g/dL (3.5-5.0) 01/09/18 09:24 Globulin 2.5 gm/dL (2.2-3.9) 01/09/18 09:24 Albumin/Globulin Ratio 1.5 (1.0-2.1) 01/09/18 09:24 Blood Type O POSITIVE 01/08/18 17:12 Antibody Screen Negative 01/08/18 17:12 Attending/Attestation - Attestation I have personally seen and examined this patient.: Yes I have fully participated in the care of the patient.: Yes I have reviewed all pertinent clinical information, including history, physical exam and plan: Yes
[2018-01-11] MEDS ORDERED: Influenza Vaccine 60 MCG/0.5 ML SYR (3 yr & up) IM ONE (14:00)
--- NOTE | 2018-01-12 02:53 | OP ---
PROCEDURE DATE: 01/08/2018 PREOPERATIVE DIAGNOSES: 1. Dislocated and displaced fracture of the left ankle. 2. Rupture of syndesmotic ligament of the left ankle. POSTOPERATIVE DIAGNOSES: 1. Dislocated and displaced fracture of the left ankle. 2. Rupture of syndesmotic ligaments of the left ankle. PROCEDURES PERFORMED: 1. Open reduction with internal fixation of dislocated and displaced fracture of the left ankle. 2. Repair of syndesmotic ligaments rupture of the left ankle. SURGEON: Tracey Lai DPM ASSISTANTS: Vera Serrano DPM, PGY-3; Be Royal DPM, PGY-3; Dr. Jarrod Melissa, PGY-3. ANESTHESIOLOGIST: Dr. Luther ANESTHESIA: General with local. INDICATIONS: The patient is a 32-year-old male with the above-mentioned diagnoses. Of note, the patient did say that he was playing in a rugby match earlier today where he suffered an injury to his left ankle after having his teammate fall on his left leg. The patient then presented to the [facility] Emergency Department with a dislocated left ankle joint. In the emergency department, the patient did undergo a closed reduction of the left ankle joint at bedside with adequate reduction achieved and the patient was placed into a bivalve cast. Later that evening, the patient was taken to the operating room emergently for repair of the left ankle fracture. The patient required surgical intervention at this time. All risks, benefits, and possible complications to the proposed procedure have been explained to the patient at length. The patient verbalized understanding and wished to proceed. All questions were answered. No guarantees were given or implied. Consent was signed and n.p.o. status was confirmed prior to bringing the patient into the operating room. OPERATIVE PROCEDURE: The patient was brought into the operating room and placed on the operating room table in a supine position. A well-padded pneumatic thigh tourniquet was placed in a side position to the left leg. Once general anesthesia was achieved, the cast was then removed from the patient's left lower extremity. Next, this foot and ankle were then prepped and draped in the usual sterile manner, and the procedure was begun. PROCEDURE #1: Open reduction with internal fixation of dislocated and displaced fracture of the left ankle. Attention was then directed to the patient's left ankle and under intraoperative fluoroscopy, a displaced spiral oblique fracture of the distal fibula was appreciated at this time. Using #15 blade, an approximately 10 cm linear longitudinal incision was made directly over the lateral aspect of the patient's fibula. Care was taken to avoid all vital neurovascular structures. All bleeders were cauterized as necessary at this time. A combination of sharp and blunt tissue dissection was utilized to deepen the incision to the subcutaneous layer. Next, once the periosteal layer was identified, a fresh #15 blade was utilized to make a linear incision directly over the lateral aspect of the fibula down to the level of bone. A Estrella elevator was now utilized to free the periosteal tissue, both medial and laterally, thus reflecting the periosteum. At this time, the fracture site was then identified at the level of the ankle joint. The distal fracture fragment appeared to be both superiorly and posteriorly displaced in relation to the proximal aspect of the fibula. Next, the surgical site was flushed with copious amounts of sterile normal saline solution to remove any hemorrhage or clotting or debris from the fracture site. Next, a bone reduction forceps was utilized to reduce the distal fracture fragment of the fibula into an anatomic position which was then brought out to length. The fracture site was then examined under intraoperative fluoroscopy with excellent anatomic reduction of the distal fibular fracture fragment achieved at this time. Next, while the bone reduction forceps was left in place in order to hold the fracture fragment into proper alignment, a 1.25 K-wire was driven from anterior to posterior in a perpendicular fashion across the fracture fragment of the fibula. Next, utilizing standard AO principles and techniques, a 3.5 Synthes cortical inter-fragment screw was placed across the fracture site with excellent compression achieved at this point. Next, a Synthes 8-hole distal fibula plate was then placed at the lateral aspect of the fibula and positioning of the plate was confirmed using intraoperative fluoroscopy. At this time, two K-wires were utilized to stabilize the plates on the lateral aspect of the fibula, both proximally and distally. Next, following standard AO principles and techniques, two 3.5 cortical Synthes screws were placed in the two most proximal holes of the plate, and next, two 4 cancellous Synthes screws were placed in the distal most aspect hole of the plate. Next, two 3.5 locking screws were then placed in the remaining hole of the proximal aspect of the plate. The plates appeared to be well contoured to the lateral aspect of the fibula with excellent reduction achieved. PROCEDURE #2: Repair of syndesmotic ligament rupture of the left ankle. At this time, the ankle joint was then placed through stress external rotation under intraoperative fluoroscopy with significant gapping of the distal tibia-fibula overlap appreciated. At this time, the decision was made to repair the syndesmotic ligaments of the left ankle joint. Next, a K-wire was placed approximately 1.5 cm proximal to the level of the ankle joint and was directed through the lateral aspect of the fibula using an approximately 30-degree angle. The K-wire was driven from the fibula across the syndesmotic ligaments and out through the medial aspect of the tibia. Proper placement of the K-wire was confirmed using intraoperative fluoroscopy at this time. Next, the 3.5 mm drill bit from the Ar[employer]rex TightRope kit was then utilized to drill over the K-wire from the fibula to the medial aspect of the tibia. Next, the K-wire was then removed and the Arthrex TightRope was then inserted across the drill hole from lateral to medial. The FiberTape was then tightened with the buttons of the Arthrex TightRope positioned adequately against the tibia and the fibula. Next, the decision was made to insert a second Arthrex TightRope distal to the first TightRope using the same aforementioned techniques involved with a total of two Knotless TightRopes utilized with proper anatomic reduction of the syndesmotic ligament achieved. Final x-rays were then taken intraoperatively with excellent correction of the ankle joint mortise and the distal fibular fracture fragment reduced in anatomic alignment and proper reduction of the syndesmotic ligaments. The surgical site was flushed with copious amounts of sterile normal saline solution. The deep subcutaneous tissue was reapproximated using 2-0 Vicryl, the subcutaneous tissue was reapproximated using 3-0 Vicryl, the subcuticular tissue was reapproximated using 4-0 Vicryl, and the skin edges were reapproximated utilizing 4-0 Monocryl sutures. Please note that preoperatively, the patient did receive a 1:1 mixture of 0.25% Marcaine plain with 2% lidocaine plain for a total of 20 mL. Additionally, postoperatively, the patient did receive 20 mL of 0.25% Marcaine plain introduced to the left lower extremity at the ankle joint and as well the common peroneal nerve. Postoperative bandages included Steri-Strips, Betadine-soaked Adaptic, 4x4 gauze, Rajiv, Kerlix, and a well-padded below-knee AO splint was applied to the left lower extremity with the foot at a neutral position to the leg. POSTOPERATIVE CONDITION: The patient tolerated the procedure well and the anesthesia well with no apparent complications or complaints. The patient was escorted from the OR to the recovery room with vital signs stable and neurovascular structures intact. The patient will be nonweightbearing to the left lower extremity with crutches. The patient will be admitted for observation for pain control. The patient will follow up with Dr. Lai in her office within one week. Vera Serrano DPM Tracey Lai DPM RHETT
== END 2018-01-09 19:18 | disposition home or self-care (01) ==
LOC: C.ER 15:58 → C.9E 17:19 → C.6T 17:55
PROVIDERS: ADMIT Internal Medicine; ATTEND Internal Medicine
DX: T14.8XXA Other injury of unspecified body region, initial encounter (principal); W55.89XA Other contact with other mammals, initial encounter; Y93.79 Activity, other specified sports and athletics; S93.492A Sprain of other ligament of left ankle, initial encounter
CPT/HCPCS: 27695; 27792; 36415; 73590; 73600; 73610; 76000; 80053; 85025; 85610; 86850; 86900; 96365; 96366; 96375; 96376; 97116; 97161; 99285; C1713; C1769; G0378; G8978; G8979; G8980; J0690; J1885; J2250; J2270; J2704; J3010; J7030